=== PATIENT | female | born 1975 | race Caucasian/White ===

== ENCOUNTER 2016-11-22 09:31 | Day surgery (SDC) | payer OTHER ==
[~2016-11-22] VITALS: Ht 165.1 cm; Wt 96.6 kg
[~2016-11-22 09:31] MED LIST: 0.9% Sodium Chloride 1,000 ML IV SCH; ASPI-973 PO; MULT-1018 PO; OMEG-38 PO; OMEP20CA11 PO; Sodium Chloride LOK Flush 10 mL Syringe IV PRN; VIT1TABL83 PO; fentaNYL-PF 50 mCg/mL 2 mL Inj IVPUSH PRN
[2016-11-22 09:56] VITALS: BP 119/62; PULSE 70; RESP 19; O2SAT 99
[2016-11-22] MEDS ORDERED: METO5TAB78 PO (10:02)
[2016-11-22 11:19] VITALS: BP 112/70; PULSE 64; O2SAT 95
[2016-11-22 11:29] VITALS: BP 115/69; PULSE 57; O2SAT 100
[2016-11-22 11:44] VITALS: BP 121/76; PULSE 60; O2SAT 100
--- NOTE | 2016-11-22 12:07 | ENDO ---
[address] [address] ENDOSCOPY PROCEDURE PATIENT: MILLER BRITO : 1975 MR#: [id number] ADMIT: 11/22/2016 JOB ID: [id number] DATE OF SERVICE: 11/22/2016 PRIMARY PROVIDER: Abdirahman Biggs MD. PROCEDURE: 1. Esophagogastroduodenoscopy with biopsy and hot biopsy. 2. Colonoscopy with hot snare polypectomy. INDICATIONS: This is a 41-year-old female with a history of altered bowel habits, occasional red blood per rectum, abdominal pains, reflux component. She has actually done markedly better with the introduction of dilute raw apple cider vinegar. She is using soaked Santana seeds as well. Bowels are moving regularly. She is not experiencing anywhere near the symptoms that she had when we visited in the office back in October. EQUIPMENT: GIF-H180J and PCF-H190DL. SEDATION: 1. Versed 7 mg. 2. Fentanyl 150 mcg. COMPLICATIONS: None identified. BOWEL PREPARATION: Fair, adequate exam. PROCEDURE INFORMATION: After the risks and benefits were explained, written and verbal informed consent was obtained. The patient was brought into the endoscopy suite and placed into the left lateral decubitus position. Sedation was achieved as above. The scope introduced into the mouth through the bite block, and advanced to the second portion of the duodenum. The scope was slowly withdrawn to carefully examine the mucosa for any defects or lesions. Retroflexed views were accomplished in the stomach. The stomach was decompressed. The scope removed from the patient who tolerated the procedure well. The patient was then turned around. Digital rectal examination accomplished. No pathology appreciated. The scope was introduced into the rectum and advanced to the cecum as identified by the appendiceal orifice and ileocecal valve. The terminal ileum was briefly accessed. The scope then slowly withdrawn to carefully examine the mucosa for any defects or lesions. Multiple direct views were made through the dentate line for exclusion of pathology. The colon was decompressed. The scope removed from the patient who tolerated the procedure well. FINDINGS: 1. Duodenum: No pathology identified from the bulb through to the second portion. 2. Stomach: No ulcers. No mass lesions. No outlet obstruction. There was a small, diminutive polyp removed from the body. There were a few scattered erosive features. The polyp biopsy will help exclude recurrent H. pylori infection. Retroflexed views of the LES were fairly unremarkable apart from a small white nodule. Interestingly, just irrigating this location caused significant bleeding. I utilized a hot forceps to take a formal bite from this location which stopped most of the bleeding. We then applied the closed forceps to the area around where we had taken a bite to provide for sufficient hemostasis. This area could really only be seen in retroflexed position and was quite close to the cardia. 3. Esophagus: The squamocolumnar junction correlated with the top of the gastric folds. The GEJ was at about 42 cm from the incisors. No acute erosive changes. No strictures. No mass lesions. 4. Terminal ileum: This was normal throughout. 5. Colon: No evidence of any inflammation. No vascular pathology. In the proximal descending colon there was an approximately 6 mm, sessile polyp removed with hot snare. No other significant pathology was appreciated throughout. The patient had a mildly tortuous left colon. ENDOSCOPIC DIAGNOSES: 1. Gastric cardia hemorrhagic nodule, status post biopsy and hot forceps application for hemostasis. 2. Gastric polyp. 3. Erosive gastropathy. 4. Colon polyp. 5. Otherwise visually unremarkable colonoscopy to cecum. RECOMMENDATIONS: 1. Await histopathology. 2. It helicobacter is found, it will need to be eradicated with standard triple therapy. 3. If the colon polyp is an adenoma, repeat colonoscopy will be suggested for five years. 4. Otherwise, continue with the regimen recommended and described in my clinic note from October 20. 5. Follow up in my office any time as needed.
--- NOTE | 2016-11-23 11:39 | PATH ---
SURGICAL PATHOLOGY Attending Physician:Sangita Varela CASE STATUS: Signed Out PATIENT NAME: MILLER BRITO PID: [id number] : 1975 DATE COLLECTED:11/22/2016 20:14 SPECIMEN: 1: Stomach, Polyp, Biopsy 2: Gastric, Biopsy 3: Colon, Biopsy CLINICAL HISTORY: 1). GASTRIC POLYPS 2). GASTRIC BIOPSY 3). DESCENDING POLYPS FINAL DIAGNOSIS: 1.GASTRIC POLYPS: FUNDIC GLAND POLYPS. Negative for intestinal metaplasia. Negative for dysplasia and malignancy. 2.GASTRIC BODY BIOPSY: GASTRIC XANTHOMA. Negative for Helicobacter organisms. Negative for intestinal metaplasia. Negative for dysplasia and malignancy. 3.DESCENDING POLYP: TUBULAR ADENOMA. ICD10 CODE K31.7 D12.4 GROSS DESCRIPTION: The specimen is received in three formalin filled containers labeled with the patient's name. 1). The specimen is sublabeled "gastric polyp" and consists of 2 portions of tissue which aggregate to 0.3 x 0.3 x 0.2 CM. The specimen is entirely submitted in cassette 1A. 2). The specimen is sublabeled "gastric" and consists of a 0.2 x 0.2 x 0.1 CM friable portion of tissue which is entirely submitted in cassette 2A. 3). The specimen is sublabeled "descending polyp" and consists of a 0.2 x 0.2 x 0.1 CM portion of tissue which is entirely submitted in cassette 3A. 11/22/2016 DAC MICRO DESCRIPTION: See diagnosis. ICD-9 CODES: CPT CODES: 1: 56147 2: 05283 3: 60992 Electronically Signed Out Chani Kennedy MD [facility] [address], [place] [address] Technical component performed at [facility], [facility] [address], [place], [address]
== END 2016-11-22 23:59 | disposition home or self-care (01) ==
LOC: END 09:31
PROVIDERS: ATTEND Internal Medicine Gastroenterology
DX: D12.4 Benign neoplasm of descending colon (principal); K31.7 Polyp of stomach and duodenum; K59.00 Constipation, unspecified; K21.9 Gastro-esophageal reflux disease without esophagitis; Z79.82 Long term (current) use of aspirin
CPT/HCPCS: 43239; 45385; 88305; 99153; G0500; J2250; J7030